=== PATIENT | male | born 1995 | race Caucasian/White ===

== ENCOUNTER 2019-01-16 10:27 | Emergency (ER) | payer OTHER ==
[~2019-01-16] VITALS: Ht 165.1 cm; Wt 72.2 kg
[2019-01-16 10:40] VITALS: BP 152/91
--- NOTE | 2019-01-16 10:53 | NUR ---
PT C/O LOWER BACK INJURY SINCE Mar. PT REPORTS INJURY FROM REPETITIVE MOTION AT WORK AND NEEDS DR NOTE FOR ACTIVITY RESTRECTION DURING WORK. PT UNABLE TO SEE PCP UNTIL Feb. PT REPORTS OF CONSTANT LOWER BACK PAIN 4/10 AT THIS TIME RADIATING TO LATERAL LOWER BACK AND LOWER HIP. MOVEMENTS MAKE THE PAIN WORSE TO 7/10. VSS; PATIENT POSITIONED FOR COMFORT; HOB ELEVATED; BEDRAILS UP X1; BED DOWN. ER MD MADE AWARE OF PT STATUS.
[2019-01-16 11:39] VITALS: BP 129/67
--- NOTE | 2019-01-16 11:39 | NUR ---
Patient discharged with v/s stable. Written and verbal after care instructions given and explained. Patient verbalized understanding. Ambulatory with steady gait. All questions addressed prior to discharge. Advised to follow up with PMD.
== END 2019-01-16 11:39 | disposition home or self-care (01) ==
LOC: MED 10:27
DX: S39.012A Strain of muscle, fascia and tendon of lower back, initial encounter (principal); X58.XXXA Exposure to other specified factors, initial encounter; Y93.89 Activity, other specified; Y92.89 Other specified places as the place of occurrence of the external cause; Y99.0 Civilian activity done for income or pay
CPT/HCPCS: 99283

== ENCOUNTER 2021-10-08 00:48 | Emergency (ER) | payer OTHER ==
[~2021-10-08] VITALS: Ht 165.1 cm; Wt 80.3 kg
[2021-10-08 00:52] VITALS: BP 118/89
--- NOTE | 2021-10-08 00:57 | NUR ---
PT TO LOBBY TO A/W EVALUATION IN STABLE CONDITION.
--- NOTE | 2021-10-08 01:09 | NUR ---
COVERING PRIMARY RN FOR LUNCH RELIEF. PLEASE SEE COMPLETE ASSESSMENT FOR FURTHER DETAIL.
--- NOTE | 2021-10-08 01:09 | NUR ---
PT AMBULATED TO BED #4
[2021-10-08] MEDS ORDERED: LIDOCAINE 5% 1 EA PATCH TP SCH (01:35)
[2021-10-08] MEDS ORDERED: IBUPROFEN 800 MG TAB PO ONE (01:35)
--- NOTE | 2021-10-08 01:44 | NUR ---
26 Y/O M PRESENTS TO ED WITH C/O NUMBNESS TO LT ARM STARTED AT 2100 WHILE DRIVING. 3/10 DISCOMFORT TO LT ARM. DENIES CHEST PAIN/PRESSURE. FULL ROM, CMS INTACT, NO INJURY NOTED. UNLABORED BREATHING, A/OX4, GCS-15. AMBULATORY W/O ASSISTANCE. SEATED IN BED W/ HOB RAISED AND BED IN LOWEST SETTING WITH RAIL UP X1. MEDHX- DENIES NKA
[2021-10-08] MEDS ORDERED: ACET-11169 PO (04:33)
[2021-10-08 04:47] VITALS: BP 118/91
--- NOTE | 2021-10-08 04:48 | NUR ---
Patient discharged with v/s stable. Written and verbal after care instructions given and explained. Patient alert, oriented and verbalized understanding of instructions. Ambulatory with steady gait. All questions addressed prior to discharge. ID band removed. Patient advised to follow up with PMD. Rx of ACETAMENOPHEN given. Patient educated on indication of medication including possible reaction and side effects. Opportunity to ask questions provided and answered. VSS, A/OX4, UNLABORED BREATHING, AMBULATORY, AND CALM DEMEANOR.
== END 2021-10-08 04:46 | disposition home or self-care (01) ==
LOC: MED 00:48
DX: M77.02 Medial epicondylitis, left elbow (principal); G58.9 Mononeuropathy, unspecified; Z79.899 Other long term (current) drug therapy
CPT/HCPCS: 73020; 93005; 99283; Q0092